=== PATIENT | male | born 1960 | race Caucasian/White ===

== ENCOUNTER 2021-01-30 09:50 | Emergency (ER) | payer MEDICARE, OTHER ==
[2021-01-30] MEDS ORDERED: Bacitracin Oint 1 GM U/D Packet TOP ONE (10:49)
--- NOTE | 2021-01-30 10:49 | EDM.PDOC ---
ED HPI GENERAL MEDICAL PROBLEM - General Chief Complaint: Upper Extremity Injury/Pain Stated Complaint: FISH HOOK LEFT HAND Time Seen by Provider: 01/30/21 10:44 Source of Information: Reports: Patient, RN Notes Reviewed History Limitations: Reports: No Limitations - History of Present Illness INITIAL COMMENTS - FREE TEXT/NARRATIVE: 60-year-old gentleman presents emergency department today with a fishhook to his ring finger left hand he has partially removed the newer the only thing that remains is a portion of the shank and the osmin hook - Related Data Allergies Allergy/AdvReac Type Severity Reaction Status Date / Time No Known Allergies Allergy Verified 01/30/21 10:12 Home Meds: Home Meds Ginkgo Biloba 1 cap PO DAILY 01/30/21 [History] Past Medical History - Past Surgical History Dermatological Surgical History: Reports: Skin Graft Social & Family History - Tobacco Use Tobacco Use Status *Q: Never Tobacco User - Caffeine Use Caffeine Use: Reports: Coffee - Recreational Drug Use Recreational Drug Use: No Review of Systems - Review of Systems Review Of Systems: See Below Skin: Reports: Wound ED EXAM, GENERAL - Physical Exam Exam: See Below Free Text/Narrative:: Examination of digit #4 there is a single barbed hook in between the DIP and PIP joint on the dorsal surface of the finger, full range of motion of all digits. Digital block was performed in the usual fashion with 1% lidocaine the hook was removed using the fisherman's technique Exam Limited By: No Limitations General Appearance: Alert, WD/WN, No Apparent Distress Course - Vital Signs Last Recorded V/S: Last Vital Signs Temp 97.8 F 01/30/21 10:19 Pulse 78 01/30/21 10:19 Resp 16 01/30/21 10:19 BP 175/98 H 01/30/21 10:19 Pulse Ox 98 01/30/21 10:19 - Orders/Labs/Meds Meds: Medications Discontinued Medications Generic Name Dose Route Start Last Admin Trade Name Mildred PRN Reason Stop Dose Admin Bacitracin 1 dose 01/30/21 10:49 01/30/21 10:56 Bacitracin Oint 1 Gm U/D Packet TOP 01/30/21 10:50 1 dose ONETIME ONE Administration Lidocaine HCl 5 ml 01/30/21 10:46 01/30/21 10:56 Lidocaine 1% 5 Ml Sdv INJECT 01/30/21 10:47 5 ml ONETIME ONE Administration Departure - Departure Time of Disposition: 11:53 Disposition: Home, Self-Care 01 Condition: Good Clinical Impression: Fish hook injury of finger of left hand Qualifiers: Encounter type: initial encounter Qualified Code(s): S69.92XA - Unspecified injury of left wrist, hand and finger(s), initial encounter - Discharge Information Referrals: PCP,None [Primary Care Provider] - Forms: ED Department Discharge Additional Instructions: Follow-up with primary care as needed Sepsis Event Note (ED) - Evaluation Sepsis Screening Result: No Definite Risk - Focused Exam Vital Signs: Vital Signs Temp Pulse Resp BP Pulse Ox 01/30/21 10:19 97.8 F 78 16 175/98 H 98 01/30/21 10:13 97.8 F 78 16 175/98 H 98 - Assessment/Plan Plan: Assessment Acuity = acute Site and laterality = fishhook digit #4 left hand Etiology = trauma Manifestations = none Location of injury = Home Lab values = none Plan Follow-up primary care as needed This note was dictated using [employer] voice recognition software please call with any questions on syntax or grammar.
== END 2021-01-30 12:01 | disposition home or self-care (01) ==
LOC: JP.ED 09:50
DX: S60.455A Superficial foreign body of left ring finger, initial encounter (principal); I10 Essential (primary) hypertension; W45.8XXA Other foreign body or object entering through skin, initial encounter
CPT/HCPCS: 64450; 99283-25